=== PATIENT | female | born 1960 | race Caucasian/White ===

== ENCOUNTER 2017-10-04 07:51 | Emergency (ER) | payer BC, OTHER ==
--- NOTE | 2017-10-04 07:59 | EDM.PDOC ---
ED HPI GENERAL MEDICAL PROBLEM - General Chief Complaint: Lower Extremity Injury/Pain Stated Complaint: GOUT FLARE, RT FOOT Time Seen by Provider: 10/04/17 07:58 Source of Information: Reports: Patient, RN, RN Notes Reviewed History Limitations: Reports: No Limitations - History of Present Illness INITIAL COMMENTS - FREE TEXT/NARRATIVE: Pt complains of recurrent right foot pain that has come and gone for approx. 3 years. She states her PCP has considered gout as a possible cause. Pt denies any history of injury, joint swelling, or redness. She describes the pain as a burning tingling pain, mostly in the right 1st toe, but sometimes in Rt toes 1-3 , in into the Rt medial foot. It has occurred in the left toes at times also. Pt has no Hx of confirmed gout, DM, HTN, CKD, or back pain/injury. Duration: Intermittent, Recurring Location: Reports: Lower Extremity, Right Quality: Reports: Burning, Same as Previous Episode Severity: Severe Improves with: Reports: None Worsens with: Reports: None Associated Symptoms: Reports: No Other Symptoms Right Feet Pain Score (Numeric/FACES): 10 - Related Data Allergies Allergy/AdvReac Type Severity Reaction Status Date / Time No Known Allergies Allergy Verified 10/04/17 07:54 Home Meds: Home Meds Pravastatin Sodium 1 tab PO DAILY 10/04/17 [History] traZODone HCl [Trazodone HCl] 50 mg PO DAILY 10/04/17 [History] Past Medical History HEENT History: Reports: Impaired Vision Cardiovascular History: Reports: High Cholesterol Social & Family History - Family History Family Medical History: Noncontributory - Tobacco Use Smoking Status *Q: Never Smoker - Recreational Drug Use Recreational Drug Use: No - Living Situation & Occupation Living situation: Reports: with Family Occupation: Employed Review of Systems - Review of Systems Review Of Systems: ROS reveals no pertinent complaints other than HPI. ED EXAM, GENERAL - Physical Exam Exam: See Below Exam Limited By: No Limitations General Appearance: Alert, WD/WN, No Apparent Distress Throat/Mouth: Normal Inspection, Normal Voice Head: Atraumatic, Normocephalic Neck: Normal Inspection Respiratory/Chest: No Respiratory Distress, Lungs Clear Cardiovascular: Normal Peripheral Pulses, Regular Rate, Rhythm, No Edema Back Exam: Normal Inspection, Full Range of Motion Extremities: Normal Range of Motion, No Pedal Edema, Normal Capillary Refill, Other (mild tenderness of Rt 1st toe, nl color, no swelling, no increased warmth , skin is intact, nail appears normal). No: Joint Swelling, Tom's Sign, Increased Warmth, Mottled, Pallor, Redness Neurological: Alert, Oriented, Normal Cognition, Normal Gait, No Motor/Sensory Deficits (with the exception of slight hypersensitivity to touch of the Rt 1st toe) Psychiatric: Normal Affect, Normal Mood Skin Exam: Warm, Dry, Intact, Normal Color, No Rash Course - Vital Signs Last Recorded V/S: Last Vital Signs Temp 36.2 C 10/04/17 07:56 Pulse 91 10/04/17 07:56 Resp 18 10/04/17 07:56 BP 160/97 H 10/04/17 07:56 Pulse Ox 98 10/04/17 07:56 - Orders/Labs/Meds Labs: Laboratory Tests 10/04/17 10/04/17 10/04/17 Range/Units 08:11 08:11 08:11 WBC 4.2 L (5.0-10.0) 10^3/uL RBC 4.89 (4.2-5.4) 10^6/uL Hgb 15.1 (12.0-16.0) g/dL Hct 45.0 (37.0-47.0) % MCV 92.0 (80-100) fL MCH 30.9 (27.0-34.0) pg MCHC 33.6 (33.0-35.0) g/dL Plt Count 268 (150-450) 10^3/uL Neut % (Auto) 40.7 L (42.2-75.2) % Lymph % (Auto) 43.3 (20.5-50.1) % [place] % (Auto) 12.4 H (2-8) % Eos % (Auto) 2.6 (1.0-3.0) % Baso % (Auto) 1.0 (0.0-1.0) % Sodium 136 (135-145) mmol/L Potassium 4.2 (3.6-5.0) mmol/L Chloride 100 L (101-111) mmol/L Carbon Dioxide 24.0 (21.0-31.0) mmol/L Anion Gap 16.2 BUN 18 (7-18) mg/dL Creatinine 1.1 (0.6-1.3) mg/dL Est Cr Clr Drug Dosing 51.39 mL/min Estimated GFR (MDRD) 51 BUN/Creatinine Ratio 16.36 Glucose 114 H (74-105) mg/dL Uric Acid 7.0 (2.6-7.2) mg/dL Calcium 9.7 (8.4-10.2) mg/dl Total Bilirubin 1.1 H (0.2-1.0) mg/dL AST 36 (10-42) IU/L ALT 55 (10-60) IU/L Alkaline Phosphatase 67 (42-121) IU/L C-Reactive Protein < 0.5 (0.0-1.3) mg/dL Total Protein 7.8 (6.7-8.2) g/dl Albumin 4.7 (3.2-5.5) g/dl Globulin 3.1 Albumin/Globulin Ratio 1.52 Meds: Medications Discontinued Medications Generic Name Dose Route Start Last Admin Trade Name Freq PRN Reason Stop Dose Admin Lidocaine HCl 15 gm 10/04/17 08:58 10/04/17 09:01 Lidocaine 5% TOP 10/04/17 08:59 1 applic ONETIME ONE Administration Departure - Departure Time of Disposition: 09:01 Disposition: Home, Self-Care 01 Condition: Good Clinical Impression: Peripheral neuropathic pain, Idiopathic peripheral neuropathy - Discharge Information Instructions: Neuropathic Pain, Peripheral Neuropathy Forms: ED Department Discharge Additional Instructions: Rx: Lidocaine 5% Ointment. May try over the counter Capsaicin cream applied up to four times a day. Start with a tiny amount, and increase slowly. Take a B-Complex (B-100) vitamin once a day. Ask your doctor if your blood levels of vitamin D, B-12, and folate have been checked. Consider a referral from your primary doctor to a neurologist for further evaluation.
[2017-10-04 08:37] LABS: ANION GAP 16.2
[2017-10-04] MEDS ORDERED: Lidocaine 5% Oint 35.44 GM Tube TOP ONE (08:58)
== END 2017-10-04 09:10 | disposition home or self-care (01) ==
LOC: DL.ED 07:51
DX: G60.9 Hereditary and idiopathic neuropathy, unspecified (principal); Z79.899 Other long term (current) drug therapy
CPT/HCPCS: 36415; 80053; 84550; 85025; 86140; 99283; A9270